=== PATIENT | female | born 1955 | race Caucasian/White ===

== ENCOUNTER 2017-11-02 07:32 | Inpatient (IN) | payer SELFPAY ==
[~2017-11-02] VITALS: Ht 157.5 cm; Wt 117.2 kg
[2017-11-02 09:15] VITALS: BP 183/85; PULSE 86; RESP 20; TEMP 98.7; O2SAT 94
[2017-11-02] MEDS: SODIUM CHLOR 0.45% 1000 ML INJ 1,000 ML IV SCH (11:27)
--- NOTE | 2017-11-02 11:34 | HHI.HP ---
[facility] No Primary Care Physician Admission Diagnosis Diagnoses: (1) Lara-Ean disease (2) Bilateral cellulitis of lower leg Chief Complaint: leg pain Travel History International Travel<30 Days: No Contact w/Intl Traveler <30 Da: No History of Present Illness 62-year-old white female who was admitted for possible cellulitis. Patient was in her usual state of health until about last week when she began noticing's peeling skin on her lower legs bilaterally with a low level of pain. This then worsened 3 days ago and her skin became more red and her pain became unbearable. It hurt to walk and she describes the pain as a burning sensation. In addition to the skin peeling off she says there were some skin eruptions of lesions that were very similar to a spider bite that she said she got 2 months ago to which she points out a residual lesion on her left posterior calf which appears to show necrotic skin tissue. She says she was treated with amoxicillin at that time by an urgent care and has not seen a physician since or has gone to any other emergency rooms. This time she took some Aleve to mild relief but otherwise did not seek any other medical attention. Pt denies any vision changes or any lesions in her mouth; denies any painful BMs suggestive of rectal ulcers. She says she does not have insurance and thus has not been able to see a physician and outpatient practice consistently. Review of Systems Except as stated in HPI: all other systems reviewed are Neg Past Family Social History Past Medical History None per patient except for a spider bite Past Surgical History None per patient Allergies: Coded Allergies: sumatriptan (Verified Allergy, Severe, 11/02/17) Family History Hypertension Social History Denies smoking alcohol or illicit drug use; works in pediatric healthcare setting Physical Exam Vital Signs Vital Signs Date Time Temp Pulse Resp B/P (MAP) Pulse Ox O2 Delivery O2 Flow Rate FiO2 11/02/17 09:15 98.7 86 20 183/85 (117 94 Physical Exam VS: afebrile GENERAL: Middle-aged white female in acute distress secondary to pain SKIN: Has significantly disfigured skin on bilateral lower extremities. There appears to be a component of the skin that looks as if the epidermis has sloughed off on the bilateral lower extremities between areas just proximal to the malleoli extending to the mid shaft of the lower extremities bilaterally. There appears to be components of dispersed necrotic tissue all throughout the circumferential manner at the mid calf level on both lower extremities as well. Her feet show significant drying skin. EYES: Pupils equal and round. No scleral icterus. No injection or drainage. ENT: No nasal bleeding or discharge. Mucous membranes pink and moist. CARDIOVASCULAR: Regular rate and rhythm. no murmurs RESPIRATORY: No accessory muscle use. Clear to auscultation. Breath sounds equal bilaterally. GASTROINTESTINAL: Abdomen soft, non-tender, nondistended. Extremities: No clubbing, cyanosis. Deformities in skin section. MUSCULOSKELETAL: Extremities as above. Grossly intact ROM with 5/5 strength in upper and lower extremities proximally NEUROLOGICAL: Awake and alert. No obvious cranial nerve deficits. No facial droop nor slurred speech noted. PSYCHIATRIC: Appropriate mood and affect; insight and judgment normal. Laboratory no elevated white count from [facility]. Imaging Last Impressions Lower Extremity CT 11/02/17 0000 Signed Impressions: Service Date/Time: October 14:12 - CONCLUSION: There are findings are characteristic of diffuse subcutaneous edema with possible cellulitis distally. No abscess or drainable fluid collection is present. MD Marino Parks VTE Risk Assessment Caprini VTE Risk Assessment: Mod/High Risk (score >= 2) Caprini Risk Assessment Model Point Value = 1 Point Value = 2 Point Value = 3 Point Value = 5 Age 41-60 Minor surgery BMI > 25 kg/m2 Swollen legs Varicose veins or History of unexplained or recurrent spontaneous Oral contraceptives or hormone replacement Sepsis (< 1 month) Serious lung disease, including pneumonia (< 1 month) Abnormal pulmonary function Acute myocardial infarction Congestive heart failure (< 1 month) History of inflammatory bowel disease Medical patient at bed rest Age 61-74 Arthroscopic surgery Major open surgery (> 45 min) Laparoscopic surgery (> 45 min) Malignancy Confined to bed (> 72 hours) Immobilizing plaster cast Central venous access Age >= 75 History of VTE Family history of VTE Factor V Leiden Prothrombin [id number] Lupus anticoagulant Anticardiolipin antibodies Elevated serum homocysteine Heparin-induced thrombocytopenia Other congenital or acquired thrombophilia Stroke (< 1 month) Elective arthroplasty Hip, pelvis, or leg fracture Acute spinal cord injury (< 1 month) Prophylaxis Regimen Total Risk Factor Score Risk Level Prophylaxis Regimen 0-1 Low Early ambulation 2 Moderate Order ONE of the following: *Sequential Compression Device (SCD) *Heparin 5000 units SQ BID 3-4 Higher Order ONE of the following medications: *Heparin 5000 units SQ TID *Enoxaparin/Lovenox 40 mg SQ daily (WT < 150 kg, CrCl > 30 mL/min) *Enoxaparin/Lovenox 30 mg SQ daily (WT < 150 kg, CrCl > 10-29 mL/min) *Enoxaparin/Lovenox 30 mg SQ BID (WT < 150 kg, CrCl > 30 mL/min) AND/OR *Sequential Compression Device (SCD) 5 or more Highest Order ONE of the following medications: *Heparin 5000 units SQ TID (Preferred with Epidurals) *Enoxaparin/Lovenox 40 mg SQ daily (WT < 150 kg, CrCl > 30 mL/min) *Enoxaparin/Lovenox 30 mg SQ daily (WT < 150 kg, CrCl > 10-29 mL/min) *Enoxaparin/Lovenox 30 mg SQ BID (WT < 150 kg, CrCl > 30 mL/min) AND *Sequential Compression Device (SCD) Assessment and Plan Assessment and Plan Acute skin dehiscence - 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 superimposed infection - Starting aggressive IVFs, will consider steroids if no improvement - Attempting to transfer to facility with inpt dermatology or burn center coverage - Will get wound care nurse to provide some application coverage meanwhile - IV pain control and monitoring resp status - we will obtain CT of bilateral lower extremities to see the extent of the skin involvement as well as obtaining an ID consultation to help reassure that this is not an infection - clinically i feel that this is a primary skin d/o Addendum: D/w case with Dr. Denton from [place] [facility], requesting bx's of skin lesions for path to confirm SJS. Discussed case with general surgery, they are okay with primary team performing punch biopsy. Discussed case with infectious disease, we'll proceed with vancomycin to empirically cover for any possible cellulitis since multiple other antibiotics were listed for being associated with Lara Johnsons in general. BMP in AM. We are unable to conduct any manual DVT prophylaxis via SCDs or REMY hoses due to the frail condition of the patient's legs and given the likelihood of performing a skin biopsy in the next 24 hours we will hold off on anticoagulation for now. In total, the time spent with the patient was over 40 minutes of which more than 50% of patient care was spent discussing her care with other specialists including Dr. Denton from [facility] burn [facility] as well as general surgery, counseling the patient regarding her treatment options, and discussing her care. Physician Certification 2 Midnight Certification Type: Admission for Inpatient Services Order for Inpatient Services The services are ordered in accordance with Medicare regulations or non- Medicare payer requirements, as applicable. In the case of services not specified as inpatient-only, they are appropriately provided as inpatient services in accordance with the 2-midnight benchmark. Estimated LOS (days): 3 3 days is the estimated time the patient will need to remain in the hospital, assuming treatment plan goals are met and no additional complications. Post-Hospital Plan: Not yet determined Freddy Valenzuela MD Nov 02, 2017 11:34
[2017-11-02 12:00] VITALS: BP 139/73; PULSE 87; RESP 20; TEMP 97.4; O2SAT 94
[2017-11-02] MEDS ORDERED: SODIUM CHLOR 0.9% 1000 ML INJ 1,000 ML IV ONE (13:15)
[2017-11-02] MEDS ORDERED: IOHEXOL 350 MG/ML 10 ML VIAL (for RAD DIAG) IVCONTRAST ONE (14:46)
--- NOTE | 2017-11-02 15:26 | RADRPT ---
EXAM DATE/TIME: 11/02/2017 14:12 [facility] COMPARISON: No previous studies available for comparison. INDICATIONS : Cellutis bilateral low legs. Pain and drainage from bilateral low legs. IV CONTRAST: 85 cc Omnipaque 350 (iohexol) IV ; Cumulative dose for multiple exams. RADIATION DOSE: 12.59 CTDIvol (mGy) ; Combined studies MEDICAL HISTORY : None SURGICAL HISTORY : None. ENCOUNTER: Initial ACUITY: 4 - 6 days PAIN SCALE: 10/10 LOCATION: Left low leg TECHNIQUE: Volumetric scanning of the tibia and fibula was performed. Using automated exposure control and adju stment of the mA and/or kV according to patient size, radiation dose was kept as low as reasonably ac hievable to obtain optimal diagnostic quality images. DICOM format image data is available [facility] for review and comparison. FINDINGS: There is severe diffuse subcutaneous edema of the left leg that is more severe distally and laterally . At the distal lateral aspect of the leg and ankle there is also skin thickening. The inflammatory c hanges are in the superficial subcutaneous region while the muscular compartments demonstrate no abno rmality. No fluid collection or abscess is identified. The major venous structures of the lower extre mity are patent. Bones demonstrate no acute finding. CONCLUSION: There are findings are characteristic of diffuse subcutaneous edema with possible cellulitis distally . No abscess or drainable fluid collection is present. Leonardo Mar MD on November 02, 2017 at 15:21 Board Certified Radiologist. This report was verified electronically.
--- NOTE | 2017-11-02 15:28 | RADRPT ---
EXAM DATE/TIME: 11/02/2017 14:12 [facility] COMPARISON: No previous studies available for comparison. INDICATIONS : Cellutis bilateral low legs. Pain and drainage from bilateral low legs. IV CONTRAST: 85 cc Omnipaque 350 (iohexol) IV ; Cumulative dose for multiple exams. RADIATION DOSE: 12.59 CTDIvol (mGy) ; Combined studies MEDICAL HISTORY : None SURGICAL HISTORY : None. ENCOUNTER: Initial ACUITY: 4 - 6 days PAIN SCALE: 10/10 LOCATION: Right low leg TECHNIQUE: Volumetric scanning of the tibia and fibula was performed. Using automated exposure control and adju stment of the mA and/or kV according to patient size, radiation dose was kept as low as reasonably ac hievable to obtain optimal diagnostic quality images. DICOM format image data is available [facility] for review and comparison. FINDINGS: There is diffuse subcutaneous edema of the leg. It is more severe distally near the ankle. Distally t here is also skin thickening. The inflammatory changes are localized to the superficial subcutaneous regions. The deeper muscle compartments demonstrate no abnormality. Venous structures appear patent. No abscess or fluid collection is seen. Bones demonstrate no acute finding. CONCLUSION: Diffuse subcutaneous edema of the right leg that is more severe distally. Distally the features sugge st a cellulitis. No abscess or drainable fluid collection is present. Leonardo Mar MD on November 02, 2017 at 15:25 Board Certified Radiologist. This report was verified electronically.
[2017-11-02 16:00] VITALS: BP 138/62; PULSE 90; RESP 20; TEMP 97.7; O2SAT 98
[2017-11-02] MEDS: MORPHINE SULFATE 2 MG/ML INJ IV PUSH PRN ×2 (16:11→21:19)
[2017-11-02] MEDS ORDERED: Vancomycin Consult Pharmacy 1 EA OTHER SCH (17:15)
[2017-11-02] MEDS ORDERED: VANCOMYCIN 1,000 MG/NS 250 ML IV ONE ×2 (17:30)
[2017-11-02 20:00] VITALS: BP 140/63; PULSE 92; RESP 18; TEMP 99.4; O2SAT 96
[2017-11-03] VITALS: BP 131/60; PULSE 87; RESP 18; TEMP 99.8; O2SAT 96
[2017-11-03] MEDS: SODIUM CHLOR 0.45% 1000 ML INJ 1,000 ML IV SCH ×2 (00:16→09:18)
[2017-11-03] MEDS: MORPHINE SULFATE 2 MG/ML INJ IV PUSH PRN ×2 (01:30→09:16)
[2017-11-03 06:33] LABS: POTASSIUM 3.7 MEQ/L (3.5-5.1)
[2017-11-03 06:38] LABS: BICARBONATE 25.9 MEQ/L (21.0-32.0)
[2017-11-03 09:00] VITALS: BP 158/71; PULSE 84; RESP 16; TEMP 98.2; O2SAT 99
--- NOTE | 2017-11-03 09:07 | PD.WCN.NOT ---
Wound Consult Description: Wound care consult ordered by for bilateral lower extremities. Communicated with: Dr. Freitas [facility] Tee ANAYA 3rd floor [facility] Recommendation: Cleanse bilateral lower extremities with normal saline pat dry.Apply Optifoam AG to open areas. Secure with rolled gauze CHIRAG wrap Daily or as needed for drainage.Encourage patient to elevate legs to reduce edema. Additional Information: Patient was seen today on 3rd floor [facility] by comic writer and Collin ANAYA,[facility] for assessment of bilateral lower extremities. Lower extremities present 2+ pitting edema with corpus amounts of serous drainage open areas to bilateral gaiter areas.Right lower extremity has 90% pink tissue 10% hard intact black eschar open area ~15.2cm x ~28.2cm. Left lower extremity present 85% pink tissue 15% intact black eschar wound ~14.9cm x ~28.6cm. Care performed today lower extremities cleansed with normal saline pat dry Maxsorb extra AG applied to open areas cut to fit covered with OptiLock secured with rolled gauze and CHIRAG wraps. Patient tolerated wound care well . Stated today is first day wound have been able to be touched. Lesley Rand [facility] Nov 03, 2017 09:07
--- NOTE | 2017-11-03 10:41 | PD.CONS ---
History of Present Illness Service Infectious disease Consult Requested By DR Valenzuela Reason for Consult ? cellulitis Primary Care Physician No Primary Care Physician Diagnoses: (1) Bilateral cellulitis of lower leg History of Present Illness Patient with no significant past medical history says she had spider bites on Aug 27 - that got inflamed so patient took Amoxicillin and the legs got better but per pt she had some " craters" and then 3 days ago she started having intense burning pain and legs started to blister up and drain. There was concern for Catarino Ean syndrome but no other lesions- no oral lesions and today patient is better with less pain. Review of Systems Constitutional: DENIES: Fever, Chills Endocrine: DENIES: Polydipsia, Polyuria Eyes: DENIES: Eye inflammation, Vision loss Ears, nose, mouth, throat: DENIES: Hearing loss, Vertigo, Epistaxis Respiratory: DENIES: Cough, Hemoptysis Cardiovascular: DENIES: Chest pain, Dyspnea on Exertion Gastrointestinal: DENIES: Abdominal pain, Black stools, Diarrhea, Vomiting Genitourinary: DENIES: Urinary frequency, Dysuria Musculoskeletal: DENIES: Muscle aches, Back pain Integumentary: COMPLAINS OF: Abnormal pigmentation Neurologic: DENIES: Headache, Localized weakness Psychiatric: DENIES: Mood changes, Depression Past Family Social History Allergies: Coded Allergies: sumatriptan (Verified Allergy, Severe, 11/02/17) Past Medical History Past Medical History None per patient except for a spider bite Past Surgical History None per patient Allergies: Coded Allergies: sumatriptan (Verified Allergy, Severe, 11/02/17) Family History Hypertension Social History Denies smoking alcohol or illicit drug use 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 Normocephalic. No temporal or scalp tenderness. EYES: Pupils equal round and reactive. Extraocular motions intact. No scleral icterus. No injection or drainage. ENT: Nose without bleeding, purulent drainage or septal hematoma. Throat without erythema, tonsillar hypertrophy or exudate. Uvula midline. Airway patent. NECK: Trachea midline. No JVD or lymphadenopathy. Supple, nontender, no meningeal signs. CARDIOVASCULAR: Regular rate and rhythm without murmurs, gallops, or rubs. RESPIRATORY: Clear to auscultation. Breath sounds equal bilaterally. No wheezes , rales, or rhonchi. GASTROINTESTINAL: Abdomen soft, non-tender, nondistended. No hepato-splenomegaly , or palpable masses. No guarding. MUSCULOSKELETAL: Extremities with evidence of chronic venous insufficiency and exacerbation of cellulitis No calf tenderness. Negative Homans sign bilaterally. NEUROLOGICAL: Awake and alert. Cranial nerves II through XII intact. Motor and sensory grossly within normal limits. Five out of 5 muscle strength in all muscle groups. Normal speech. Laboratory Laboratory Tests Test 11/03/17 05:35 Blood Urea Nitrogen 17 Creatinine 0.78 Random Glucose 104 Calcium Level 8.4 Sodium Level 131 Potassium Level 3.7 Chloride Level 98 Carbon Dioxide Level 25.9 Anion Gap 7 Estimat Glomerular Filtration Rate 75 Result Diagram: 11/03/17 0535 Assessment and Plan Problem List: (1) Bilateral cellulitis of lower leg ICD Codes: L03.116 - Cellulitis of left lower limb; L03.115 - Cellulitis of right lower limb Status: Acute Plan: Follow blood cultures No further progression doubt Catarino Mckoy Continue IV Vancomycin - may need for another 24-36 hrs If continues to improve can be put on PO Doxycycline with wound care as outpatient. Jesica Gallegos MD Nov 03, 2017 10:41
[2017-11-03] MEDS: VANCOMYCIN 1,500 MG/NS 500 ML IV SCH ×2 (11:25)
[2017-11-03 12:00] VITALS: BP 148/67; PULSE 80; RESP 18; TEMP 98.1; O2SAT 99
--- NOTE | 2017-11-03 15:37 | HHI.PR ---
Subjective Remarks RN denies any deterioration since last night. Patient herself says she feels much better. Says she is able to walk on the legs today without as much pain as yesterday. Objective Vital Signs Date Time Temp Pulse Resp B/P (MAP) Pulse Ox O2 Delivery O2 Flow Rate FiO2 11/03/17 12:00 98.1 80 18 148/67 (94) 99 11/03/17 09:00 98.2 84 16 158/71 (100) 99 11/03/17 00:00 99.8 87 18 131/60 (83) 96 11/02/17 20:00 99.4 92 18 140/63 (88) 96 11/02/17 16:17 18 11/02/17 16:00 97.7 90 20 138/62 (87) 98 I/O 11/02/17 11/02/17 11/02/17 11/03/17 11/03/17 11/03/17 07:00 15:00 23:00 07:00 15:00 23:00 Intake Total 732 ml 240 ml 720 ml Balance 732 ml 240 ml 720 ml Intake Oral 732 ml 240 ml 720 ml # Voids 4 3 2 Result Diagram: 11/03/17 0535 Objective Remarks Legs appear somewhat better compared to yesterday, still has considerable erythema and weeping bilateral lower extremities with punched out lesions as yesterday A/P Assessment and Plan Acute skin dehiscence - Case discussed with infectious disease and wound care, most likely cellulitis superimposed upon dermatitis secondary to venous and arterial insufficiency - Wound care has applied dressings, details in their note - We'll continue vancomycin for another day per ID recommendations with possible de-escalation doxycycline hopefully tomorrow with possible discharge - CT showing cellulitis at most - would benefit from MARY in the future, will start lipitor for suspected PAD Will apply lovenox for dvt prevention Freddy Valenzuela MD Nov 03, 2017 15:37
[2017-11-03 16:00] VITALS: BP 118/60; PULSE 89; RESP 16; TEMP 100.9; O2SAT 97
[2017-11-03] MEDS: ASPIRIN EC 81 MG TABEC PO SCH (16:28)
[2017-11-03] MEDS: ENOXAPARIN SODIUM 30 MG/0.3 ML SYRINGE SQ SCH (16:29)
[2017-11-03] MEDS ORDERED: TEMAZEPAM 15 MG CAP PO PRN (17:00)
[2017-11-03] MEDS ORDERED: ALUMINUM/MAGNESIUM/SIMETH 30 ML CUP PO PRN (17:00)
[2017-11-03] MEDS ORDERED: ONDANSETRON HCL 4 MG/2 ML VIAL IV PUSH PRN (17:00)
[2017-11-03] MEDS ORDERED: ACETAMINOPHEN 325 MG TAB PO PRN (17:00)
[2017-11-03 20:00] VITALS: BP 125/60; PULSE 83; RESP 20; TEMP 98.2; O2SAT 95
[2017-11-03] MEDS: ATORVASTATIN 40 MG TAB PO SCH (20:38)
[2017-11-04] VITALS: BP 127/56; PULSE 75; RESP 18; TEMP 97.9; O2SAT 98
[2017-11-04] MEDS: SODIUM CHLOR 0.45% 1000 ML INJ 1,000 ML IV SCH (01:06)
[2017-11-04 07:21] LABS: AUTOMATED NEUTROPHIL # 6.5 TH/MM3 (1.8-7.7); BASOPHIL # 0.1 TH/MM3 (0-0.2); BASOPHIL % 0.6 % (0.0-2.0); EOSINOPHIL # 0.1 TH/MM3 (0-0.4); EOSINOPHIL % 0.8 % (0.0-4.0); HEMATOCRIT 35.3 % (35.0-46.0); LYMPH % 15.2 % (9.0-44.0); LYMPHOCYTE # 1.3 TH/MM3 (1.0-4.8); MEAN CORPUSCULAR HEMOGLOBIN 23.4 PG (27.0-34.0); MEAN CORPUSCULAR HGB CONC 30.8 % (32.0-36.0); MONO % 6.4 % (0.0-8.0); PLATELET COUNT 321 TH/MM3 (150-450); RED BLOOD COUNT 4.64 MIL/MM3 (4.00-5.30); RED CELL DISTRIBUTION WIDTH 15.9 % (11.6-17.2); WHITE BLOOD COUNT 8.5 TH/MM3 (4.0-11.0)
[2017-11-04 07:34] LABS: HEMO FLAGS AUTO DIFF
[2017-11-04 08:00] VITALS: BP 169/74; PULSE 72; RESP 17; TEMP 97.3; O2SAT 97
[2017-11-04 08:19] LABS: SCAN/DIFF AUTO DIFF CONFIRMED
[2017-11-04] MEDS: ASPIRIN EC 81 MG TABEC PO SCH (08:52)
--- NOTE | 2017-11-04 10:01 | PD.WOU.CON ---
Patient Intake Chief Complaint Bilateral lower extremity cellulitis and drainage Consult Requested by Dr. Cervantes Reason for Consult Evaluation and treatment of bilateral leg wounds Primary Care Physician No Primary Care Physician History of Present Illness 62-year-old female with bilateral lower extremity wounds. Patient states over the last few days and swelling and then open lesions of the legs which are causing pain and discomfort. Patient drinks large amounts of fluid. She has some venous insufficiency. She presented to the emergency department and was admitted for cellulitis and drainage of both lower extremities. She has been seen by Dr. Bermudez from infectious disease. Coded Allergies: sumatriptan (Verified Allergy, Severe, 11/02/17) Preferred Language to Discuss: Azeri Barriers to Learning: None Teaching Method: Discussion Vital Signs Date Time Temp Pulse Resp B/P (MAP) Pulse Ox O2 Delivery O2 Flow Rate FiO2 11/04/17 08:00 97.3 72 17 169/74 (105) 97 11/04/17 04:51 11/04/17 00:00 97.9 75 18 127/56 (79) 98 11/03/17 20:00 98.2 83 20 125/60 (81) 95 11/03/17 16:00 100.9 89 16 118/60 (79) 97 11/03/17 12:00 98.1 80 18 148/67 (94) 99 Pain scale used: 0-10 numeric scale Pain score: 7 Medications Current Medications Oxycodone HCl (Roxicodone) 5 mg Q6HR PO Last administered on 11/04/17 05:11; Start 11/02/17 at 12:00 Sodium Chloride 1,000 ml @ 75 mls/hr [id number] IV Last administered on 01:06; Start 11/02/17 at 11:27 Morphine Sulfate (Morphine Inj) 2 mg Q4H PRN IV PUSH pain 8-10 Last administered on 11/03/17 09:16; Start 11/02/17 at 13:15; Stop 11/03/17 at 10:21 ; Status DC Sodium Chloride 1,000 ml @ 999 mls/hr BOLUS ONCE IV Last administered on 11/02 13:15; Start 11/02/17 at 13:15; Stop 11/02/17 at 14:15; Status DC Iohexol (Omnipaque 350 Inj) 85 ml STK-MED ONCE IVCONTRAST Last administered on 11/02/17 14:46; Start 11/02/17 at 14:46; Stop 11/02/17 at 14:47; Status DC Pharmacy Profile Note 0 ml @ 0 mls/hr UNSCH OTHER ; Start 11/02/17 at 17:15 Vancomycin HCl 1000 mg/Sodium Chloride 250 ml @ 250 mls/hr ONCE ONCE IV Last administered on 11/02/17 18:26; Start 11/02/17 at 17:30; Stop 11/02/17 at 18:29 ; Status DC Vancomycin HCl 1500 mg/Sodium Chloride 515 ml @ 257.5 mls/ hr Q24H IV Last administered on 11/03/17 11:25; Start 11/03/17 at 11:00 Miscellaneous Information SPECIFIC LAB TO BE DRAWN: DATE TO BE DRAWN (MM/... ONCE ONCE .XX ; Start 11/05/17 at 10:45; Stop 11/05/17 at 10:46 Enoxaparin Sodium (Lovenox Inj) 30 mg Q24H SQ Last administered on 11/03/17 16 :29; Start 11/03/17 at 16:00 Atorvastatin Calcium (Lipitor) 40 mg HS PO Last administered on 11/03/17 20:38 ; Start 11/03/17 at 21:00 Aspirin (Ecotrin Ec) 81 mg DAILY PO Last administered on 11/04/17 08:52; Start 11/03/17 at 16:00 Acetaminophen (Tylenol) 650 mg Q4H PRN PO Temp > 100.4 Last administered on 16:59; Start 11/03/17 at 17:00 Ondansetron HCl (Zofran Inj) 4 mg Q6H PRN IV PUSH NAUSEA; Start 11/03/17 at 17: 00 Al Hydrox/Mg Hydrox/Simethicone (Mag-Al Plus Susp Liq) 30 ml Q6H PRN PO DYSPEPSIA; Start 11/03/17 at 17:00 Temazepam (Restoril) 15 mg HS PRN PO INSOMNIA; Start 11/03/17 at 17:00 Past, Family & Social History Past Medical History PFSH Reviewed: Yes Review of Systems Cardiovascular: COMPLAINS OF: Swelling legs / ankles Integumentary: COMPLAINS OF: Rash Wound Assessment Vascular Assessment R Dorsails Pedis: Palpable L Dorsails Pedis: Palpable R Posterior Tibial: Palpable L Posterior Tibial: Palpable Temperature of Left Extremity: Warm Color of Left Extremity: Red Sensation of Left Extremity: Present Temperature of Right Extremity: Warm Color of Right Extremity: Red Sensation of Right Extremity: Present Extremities Evaluation: Edema Right, Edema Left Procedure Pain Management Pain Described as: Burning, Constant Pain Relieved by: Rest Wound Information - Wound One Wound Location: bilateral lower extremity venous stasis wounds with drainage Wound Type: Venous Disease Classification: PT- partial thickness Exudate: High Exudate Type: [place], Serosanguineous Debridement: No Fibrin Amount: Moderate Granulation Tissue Color: Red Granulation Tissue Texture: Firm Exposed: No exposed bone, muscle, tendon Eschar: Yes Odor: No Periwound Appearance: FINDINGS: Maceration, Cellulitis, Erythema Dressings: Abdominal Pad Dressing Notes: Optifoam Gentle AG Lab and Radiology Results Laboratory Laboratory Tests Test 11/04/17 07:00 White Blood Count 8.5 TH/MM3 Red Blood Count 4.64 MIL/MM3 Hemoglobin 10.9 GM/DL Hematocrit 35.3 % Mean Corpuscular Volume 76.0 FL Mean Corpuscular Hemoglobin 23.4 PG Mean Corpuscular Hemoglobin Concent 30.8 % Red Cell Distribution Width 15.9 % Platelet Count 321 TH/MM3 Mean Platelet Volume 7.0 FL Neutrophils (%) (Auto) 77.0 % Lymphocytes (%) (Auto) 15.2 % Monocytes (%) (Auto) 6.4 % Eosinophils (%) (Auto) 0.8 % Basophils (%) (Auto) 0.6 % Neutrophils # (Auto) 6.5 TH/MM3 Lymphocytes # (Auto) 1.3 TH/MM3 Monocytes # (Auto) 0.5 TH/MM3 Eosinophils # (Auto) 0.1 TH/MM3 Basophils # (Auto) 0.1 TH/MM3 CBC Comment AUTO DIFF Differential Comment AUTO DIFF CONFIRMED Laboratory Tests Test 11/03/17 05:35 Blood Urea Nitrogen 17 MG/DL Creatinine 0.78 MG/DL Random Glucose 104 MG/DL Calcium Level 8.4 MG/DL Sodium Level 131 MEQ/L Potassium Level 3.7 MEQ/L Chloride Level 98 MEQ/L Carbon Dioxide Level 25.9 MEQ/L Anion Gap 7 MEQ/L Estimat Glomerular Filtration Rate 75 ML/MIN Radiology Last Impressions Lower Extremity CT 11/02/17 0000 Signed Impressions: Service Date/Time: October 14:12 - CONCLUSION: There are findings are characteristic of diffuse subcutaneous edema with possible cellulitis distally. No abscess or drainable fluid collection is present. Leoanrdo Mar MD Assessment/Plan Problem List: (1) Venous insufficiency of both lower extremities Status: Chronic (2) Chronic venous hypertension (idiopathic) with ulcer and inflammation of bilateral lower extremity Status: Acute (3) Bilateral cellulitis of lower leg Status: Acute Additional Plans & Procedures PLAN: Ordered Optifoam Gentle AG dressings bilaterally with Lee wrap compressions. Patient would benefit from fluid restrictions and diuretics. Dressings can be changed every day. Follow-up with me in the wound center after discharge. Heiu Bray DPM Nov 04, 2017 10:01
[2017-11-04 12:00] VITALS: BP 151/74; PULSE 83; RESP 12; TEMP 98; O2SAT 98
[2017-11-04] MEDS: VANCOMYCIN 1,500 MG/NS 500 ML IV SCH ×2 (12:01)
--- NOTE | 2017-11-04 15:47 | HHI.IDPN ---
Subjective Subjective Remarks Low grade fever with some chills this morning Wounds / legs draining Antibiotics Vancomycin Lines Peripheral Past Medical History None Allergies: Coded Allergies: sumatriptan (Verified Allergy, Severe, 11/02/17) Review of Systems Constitutional Constitutional: Fever, Chills Objective . Vital Signs Date Time Temp Pulse Resp B/P (MAP) Pulse Ox O2 Delivery O2 Flow Rate FiO2 11/04/17 12:00 98.0 83 12 151/74 (99) 98 11/04/17 08:00 97.3 72 17 169/74 (105) 97 11/04/17 04:51 11/04/17 00:00 97.9 75 18 127/56 (79) 98 11/03/17 20:00 98.2 83 20 125/60 (81) 95 11/03/17 16:00 100.9 89 16 118/60 (79) 97 . Laboratory Tests Test 11/04/17 07:00 White Blood Count 8.5 TH/MM3 Red Blood Count 4.64 MIL/MM3 Hemoglobin 10.9 GM/DL Hematocrit 35.3 % Mean Corpuscular Volume 76.0 FL Mean Corpuscular Hemoglobin 23.4 PG Mean Corpuscular Hemoglobin Concent 30.8 % Red Cell Distribution Width 15.9 % Platelet Count 321 TH/MM3 Mean Platelet Volume 7.0 FL Neutrophils (%) (Auto) 77.0 % Lymphocytes (%) (Auto) 15.2 % Monocytes (%) (Auto) 6.4 % Eosinophils (%) (Auto) 0.8 % Basophils (%) (Auto) 0.6 % Neutrophils # (Auto) 6.5 TH/MM3 Lymphocytes # (Auto) 1.3 TH/MM3 Monocytes # (Auto) 0.5 TH/MM3 Eosinophils # (Auto) 0.1 TH/MM3 Basophils # (Auto) 0.1 TH/MM3 CBC Comment AUTO DIFF Differential Comment AUTO DIFF CONFIRMED Laboratory Tests Test 11/03/17 05:35 Blood Urea Nitrogen 17 MG/DL Creatinine 0.78 MG/DL Random Glucose 104 MG/DL Calcium Level 8.4 MG/DL Sodium Level 131 MEQ/L Potassium Level 3.7 MEQ/L Chloride Level 98 MEQ/L Carbon Dioxide Level 25.9 MEQ/L Anion Gap 7 MEQ/L Estimat Glomerular Filtration Rate 75 ML/MIN Physical Exam GENERAL: This is an obese patient who is comfortable SKIN: Both legs with draining denuded skin inflamed- a few areas with eschar Still draining a lot HEAD: Atraumatic. Normocephalic. No temporal or scalp tenderness. EYES: Pupils equal round and reactive. Extraocular motions intact. No scleral icterus. No injection or drainage. ENT: Nose without bleeding, purulent drainage or septal hematoma. Throat without erythema, tonsillar hypertrophy or exudate. Uvula midline. Airway patent. NECK: Trachea midline. No JVD or lymphadenopathy. Supple, nontender, no meningeal signs. CARDIOVASCULAR: Regular rate and rhythm without murmurs, gallops, or rubs. RESPIRATORY: Clear to auscultation. Breath sounds equal bilaterally. No wheezes , rales, or rhonchi. GASTROINTESTINAL: Abdomen soft, non-tender, nondistended. No hepato-splenomegaly , or palpable masses. No guarding. MUSCULOSKELETAL: Extremities with evidence of chronic venous insufficiency and exacerbation of cellulitis No calf tenderness. Negative Homans sign bilaterally. NEUROLOGICAL: Awake and alert. Cranial nerves II through XII intact. Motor and sensory grossly within normal limits. Five out of 5 muscle strength in all muscle groups. Normal speech. Assessment & Plan Diagnosis: (1) Bilateral cellulitis of lower leg ICD Codes: L03.116 - Cellulitis of left lower limb; L03.115 - Cellulitis of right lower limb Status: Acute Plan: Follow blood cultures No further progression doubt Catarino Mckoy Continue IV Vancomycin Patient ran a fever and legs still with significant drainage Add Cefazolin 2 g IV q 8hrs Add Gabapentin for burning pain Jesica Gallegos MD Nov 04, 2017 15:47
[2017-11-04 16:00] VITALS: BP 168/79; PULSE 86; RESP 15; TEMP 98.1; O2SAT 97
[2017-11-04] MEDS: ENOXAPARIN SODIUM 30 MG/0.3 ML SYRINGE SQ SCH (16:15)
[2017-11-04] MEDS: ceFAZolin 2 GM PREMIX 50 ML IV SCH (16:15)
[2017-11-04] MEDS: GABAPENTIN 100 MG CAP PO SCH (17:05)
--- NOTE | 2017-11-04 17:33 | HHI.PR ---
Subjective Remarks RN denies any deterioration since last night. Patient herself says the pain is still there but she is feeling even better than yesterday. She does note having chills yesterday and at which point nursing checked temperature which was 100.9. Objective Vital Signs Date Time Temp Pulse Resp B/P (MAP) Pulse Ox O2 Delivery O2 Flow Rate FiO2 11/04/17 12:00 98.0 83 12 151/74 (99) 98 11/04/17 08:00 97.3 72 17 169/74 (105) 97 11/04/17 04:51 11/04/17 00:00 97.9 75 18 127/56 (79) 98 11/03/17 20:00 98.2 83 20 125/60 (81) 95 I/O 11/03/17 11/03/17 11/03/17 11/04/17 11/04/17 11/04/17 07:00 15:00 23:00 07:00 15:00 23:00 Intake Total 240 ml 2145 ml 454 ml Balance 240 ml 2145 ml 454 ml Intake Oral 240 ml 720 ml IV Total 1425 ml 454 ml # Voids 3 2 2 Result Diagram: 11/04/17 0700 11/03/17 0535 Objective Remarks still has considerable erythema and more weeping noted today in bilateral lower extremities with punched out lesions as yesterday pt otherwise in NAD, unlabored breathing, no facial lesions noted A/P Assessment and Plan cellulitis superimposed upon dermatitis secondary to venous and arterial insufficiency - Discussed with infectious disease, given new fever, antibiotics have been modified to now adding on cefazolin to the patient's vancomycin. cbc wnl. - CT showing cellulitis at most - would benefit from MARY in the future, Lipitor for suspected PAD - Case discussed with wound care physician Dr. Bray, he has modified the dressings for the patient to be more appropriate for her. will start fluid restriction and ordering raising legs above bed. lovenox for dvt prevention Freddy Valenzuela MD Nov 04, 2017 17:33
[2017-11-04 20:00] VITALS: BP 135/75; PULSE 90; RESP 16; TEMP 99; O2SAT 96
[2017-11-04] MEDS: ATORVASTATIN 40 MG TAB PO SCH (21:32)
[2017-11-05] VITALS: BP 119/59; PULSE 82; RESP 16; TEMP 98.6; O2SAT 97
[2017-11-05] MEDS: ceFAZolin 2 GM PREMIX 50 ML IV SCH ×2 (00:24→08:49)
[2017-11-05 04:00] VITALS: BP 108/54; PULSE 85; RESP 16; TEMP 99; O2SAT 97
[2017-11-05 08:00] VITALS: BP 132/60; PULSE 73; RESP 18; TEMP 97.7; O2SAT 99
[2017-11-05] MEDS: GABAPENTIN 100 MG CAP PO SCH ×2 (08:50→12:02)
[2017-11-05] MEDS: ASPIRIN EC 81 MG TABEC PO SCH (08:50)
[2017-11-05] MEDS ORDERED: FUROSEMIDE 40 MG/4 ML VIAL IV PUSH ONE (10:00)
[2017-11-05] MEDS ORDERED: POTASSIUM CHLORIDE 10 MEQ CONTROLLED RELEASE TAB PO ONE (10:00)
--- NOTE | 2017-11-05 10:01 | HHI.IDPN ---
Subjective Subjective Remarks No fevers Less burning pain of legs Wounds / legs draining Antibiotics Vancomycin, Cefazolin Lines Peripheral Past Medical History None Allergies: Coded Allergies: sumatriptan (Verified Allergy, Severe, 11/02/17) Review of Systems Constitutional Constitutional Remarks No fever Objective . Vital Signs Date Time Temp Pulse Resp B/P (MAP) Pulse Ox O2 Delivery O2 Flow Rate FiO2 11/05/17 08:00 97.7 73 18 132/60 (84) 99 11/05/17 07:25 18 11/05/17 04:00 99.0 85 16 108/54 (72) 97 11/05/17 00:00 98.6 82 16 119/59 (79) 97 11/04/17 20:00 99.0 90 16 135/75 (95) 96 11/04/17 16:00 98.1 86 15 168/79 (108) 97 11/04/17 12:00 98.0 83 12 151/74 (99) 98 . Laboratory Tests Test 11/04/17 07:00 White Blood Count 8.5 TH/MM3 Red Blood Count 4.64 MIL/MM3 Hemoglobin 10.9 GM/DL Hematocrit 35.3 % Mean Corpuscular Volume 76.0 FL Mean Corpuscular Hemoglobin 23.4 PG Mean Corpuscular Hemoglobin Concent 30.8 % Red Cell Distribution Width 15.9 % Platelet Count 321 TH/MM3 Mean Platelet Volume 7.0 FL Neutrophils (%) (Auto) 77.0 % Lymphocytes (%) (Auto) 15.2 % Monocytes (%) (Auto) 6.4 % Eosinophils (%) (Auto) 0.8 % Basophils (%) (Auto) 0.6 % Neutrophils # (Auto) 6.5 TH/MM3 Lymphocytes # (Auto) 1.3 TH/MM3 Monocytes # (Auto) 0.5 TH/MM3 Eosinophils # (Auto) 0.1 TH/MM3 Basophils # (Auto) 0.1 TH/MM3 CBC Comment AUTO DIFF Differential Comment AUTO DIFF CONFIRMED Physical Exam GENERAL: This is an obese patient who is comfortable SKIN: Both legs with draining denuded skin though less intensely red HEAD: Atraumatic. Normocephalic. No temporal or scalp tenderness. EYES: Pupils equal round and reactive. Extraocular motions intact. No scleral icterus. No injection or drainage. ENT: Nose without bleeding, purulent drainage or septal hematoma. Throat without erythema, tonsillar hypertrophy or exudate. Uvula midline. Airway patent. NECK: Trachea midline. No JVD or lymphadenopathy. Supple, nontender, no meningeal signs. CARDIOVASCULAR: Regular rate and rhythm without murmurs, gallops, or rubs. RESPIRATORY: Clear to auscultation. Breath sounds equal bilaterally. No wheezes , rales, or rhonchi. GASTROINTESTINAL: Abdomen soft, non-tender, nondistended. No hepato-splenomegaly , or palpable masses. No guarding. MUSCULOSKELETAL: Extremities with evidence of chronic venous insufficiency and exacerbation of cellulitis- slow improvement No calf tenderness. Negative Homans sign bilaterally. NEUROLOGICAL: Awake and alert. Cranial nerves II through XII intact. Motor and sensory grossly within normal limits. Five out of 5 muscle strength in all muscle groups. Normal speech. Assessment & Plan Diagnosis: (1) Bilateral cellulitis of lower leg ICD Codes: L03.116 - Cellulitis of left lower limb; L03.115 - Cellulitis of right lower limb Status: Acute Plan: Blood cultures- negative No further progression doubt Catarino Mckoy Patient can be discharged on PO Keflex and Doxy for 2 weeks with follow up with Wound care Jesica Gallegos MD Nov 05, 2017 10:01
[2017-11-05] MEDS ORDERED: FURO1TAB62 PO (10:22)
[2017-11-05] MEDS ORDERED: ECASA81 PO (10:22)
[2017-11-05] MEDS ORDERED: CEPH-460 PO (10:22)
[2017-11-05] MEDS ORDERED: DOXY100C PO (10:22)
[2017-11-05] MEDS ORDERED: GABA100C4 PO (10:22)
[2017-11-05] MEDS ORDERED: ATOR40TA16 PO (10:22)
[2017-11-05] MEDS ORDERED: NORC5TAB PO (10:25)
--- NOTE | 2017-11-05 10:25 | HHI.DCPOC ---
Discharge Care Plan Diagnosis: (1) Chronic venous hypertension (idiopathic) with ulcer and inflammation of bilateral lower extremity (2) Bilateral cellulitis of lower leg Goals to Promote Your Health * To prevent worsening of your condition and complications * To maintain your health at the optimal level Directions to Meet Your Goals Take your medications as prescribed Follow your dietary instruction Follow activity as directed Keep your appointments as scheduled Take your immunizations and boosters as scheduled If your symptoms worsen call your PCP, if no PCP go to Urgent Care Center or Emergency Room Smoking is Dangerous to Your Health. Avoid second hand smoke Call the 24-hour hour crisis hotline for domestic abuse at Olivier Martinez Nov 05, 2017 10:25
[2017-11-05] MEDS ORDERED: PHARMACY ORDERED LAB ONE (10:45)
[2017-11-05] MEDS: VANCOMYCIN 1,500 MG/NS 500 ML IV SCH ×2 (11:37)
[2017-11-05 12:00] VITALS: BP 137/65; PULSE 79; RESP 18; TEMP 98.8; O2SAT 99
--- NOTE | 2017-11-05 12:47 | HHI.DS ---
Discharge Summary Admission Date Nov 02, 2017 at 11:14 Discharge Date: Nov 05, 2017 Admitting Diagnosis Cellulitis (1) Bilateral cellulitis of lower leg ICD Code: L03.116 - Cellulitis of left lower limb; L03.115 - Cellulitis of right lower limb Status: Acute (2) Venous insufficiency of both lower extremities ICD Code: I87.2 - Venous insufficiency (chronic) (peripheral) Status: Chronic (3) Chronic venous hypertension (idiopathic) with ulcer and inflammation of bilateral lower extremity ICD Code: I87.333 - Chronic venous hypertension (idiopathic) with ulcer and inflammation of bilateral lower extremity Status: Acute Procedures none Brief History - From Admission 62-year-old white female who was admitted for possible cellulitis. Patient was in her usual state of health until about last week when she began noticing's peeling skin on her lower legs bilaterally with a low level of pain. This then worsened 3 days ago and her skin became more red and her pain became unbearable. It hurt to walk and she describes the pain as a burning sensation. In addition to the skin peeling off she says there were some skin eruptions of lesions that were very similar to a spider bite that she said she got 2 months ago to which she points out a residual lesion on her left posterior calf which appears to show necrotic skin tissue. She says she was treated with amoxicillin at that time by an urgent care and has not seen a physician since or has gone to any other emergency rooms. This time she took some Aleve to mild relief but otherwise did not seek any other medical attention. Pt denies any vision changes or any lesions in her mouth; denies any painful BMs suggestive of rectal ulcers. She says she does not have insurance and thus has not been able to see a physician and outpatient practice consistently. CBC/BMP: 11/04/17 0700 11/05/17 1045 Significant Findings Laboratory Tests Test 11/03/17 05:35 11/04/17 07:00 11/05/17 10:45 Calcium Level 8.4 MG/DL (8.5-10.1) Sodium Level 131 MEQ/L (136-145) Estimat Glomerular Filtration Rate 75 ML/MIN (>89) 72 ML/MIN (>89) Hemoglobin 10.9 GM/DL (11.6-15.3) Mean Corpuscular Volume 76.0 FL (80.0-100.0) Mean Corpuscular Hemoglobin 23.4 PG (27.0-34.0) Mean Corpuscular Hemoglobin Concent 30.8 % (32.0-36.0) Neutrophils (%) (Auto) 77.0 % (16.0-70.0) Imaging Last Impressions Lower Extremity CT 11/02/17 0000 Signed Impressions: Service Date/Time: , November 02, 2017 14:12 - CONCLUSION: There are findings are characteristic of diffuse subcutaneous edema with possible cellulitis distally. No abscess or drainable fluid collection is present. Leonardo Mar MD PE at Discharge Legs wrapped in dressing bilaterally Patient awake, alert, unlabored in breathing, no acute distress Hospital Course Patient was admitted started on IV fluids and antibiotics. Initially her leg appearance was mildly resembling that of the Catarino Ean burn-type lesion due to the weeping and peeling and bright erythematous nature of the skin. Wound care nursing was consulted and they began up applying dressings. Infectious disease was also consulted and helped adjust with antibiotics with the impression that she had cellulitis superimposed upon then venous stasis disease. Wound care physician was also consulted and felt that she had significant then she had significant venous stasis and he helped place ultimate recommendations for optofoam AG dressings. Patient's fever had resolved and her pain was more bearable upon ambulation. Patient was instructed for follow- up of wound care post discharge and was also instructed to limit her fluid intake and to limit her consecutive prolonged ambulation and standing postures to minimize her venous stasis. Patient has met maximal benefit from hospitalization and is clinically stable for discharge. Pt Condition on Discharge: Stable Discharge Disposition: Discharge Home Discharge Time: > 30 minutes Discharge Instructions DIET: Follow Instructions for: Heart Healthy Diet Fluid Restrictions: 1800 mL/24 hrs Activities you can perform: Weight Bearing as Phi Other Activity Instructions: For every 3 consecutive hours of standing and walking, stop to take a break and elevate her legs. Today's legs above the level of chest when sleeping at night. Follow up Referrals: PCP Follow-up - 1 [facility] - 11/06/17 New Medications: Cephalexin (Keflex) 500 Mg Cap 500 MG PO Q6H for Infection for 14 Days, #56 CAP 0 Refills Doxycycline Hyclate (Doxycycline Hyclate) 100 Mg Cap 100 MG PO BID for Infection for 14 Days, #28 CAP 0 Refills Furosemide (Lasix) 20 Mg Tab 20 MG PO DAILY for edema, #30 TAB 0 Refills Hydrocodone-Acetaminophen ([place]) 5 Mg-325 Mg Tab 1 TAB PO Q6H PRN for PAIN, #12 TAB [address] (Aspirin DR) 81 Mg Tabdr 81 MG PO DAILY for anti platelet therapy for 30 Days, #30 TAB Atorvastatin (Atorvastatin) 40 Mg Tab 40 MG PO HS for athersclerosis for 30 Days, TAB Gabapentin (Gabapentin) 100 Mg Cap 200 MG PO TID for Pain Management for 30 Days, Freddy Judd MD Nov 05, 2017 12:47
[2017-11-05 13:04] VITALS: RESP 18
== END 2017-11-05 16:36 | disposition home or self-care (01) | DRG 603 ==
LOC: PHEDDLT 07:32 → PH3B 07:33 → OBSVTOIN 11:14
PROVIDERS: ADMIT Hospitalist; ATTEND Hospitalist
DX: L03.115 Cellulitis of right lower limb (principal); Z68.42 Body mass index [BMI] 45.0-49.9, adult; E66.9 Obesity, unspecified; L03.116 Cellulitis of left lower limb; I87.2 Venous insufficiency (chronic) (peripheral)
CPT/HCPCS: 73701; 80048; 80053; 80202; 82565; 83880; 85025; 86403; 87040; 87070; 87077; 87186; J0690; J1170; J1650; J1885; J1940; J2270; J2543; J3370; J7030; J7040; J7050; Q9967